=== PATIENT | male | born 1985 | race Caucasian/White ===

== ENCOUNTER 2018-12-05 21:02 | Emergency (ER) | payer OTHER, SELFPAY ==
[2018-12-05 21:02] VITALS: BP 139/81; PULSE 104; RESP 20; TEMP 36.5; O2SAT 96; BMI 32.3
--- NOTE | 2018-12-05 21:16 | CT_ITS ---
STUDY: CT BRAIN WITHOUT CONTRAST REASON FOR EXAM: Male, 33 years old. Headache. RADIATION DOSAGE (If Supplied By Facility): CTDIvol = ( 44.99 ) mGy, DLP = ( 779.24 ) mGycm TECHNIQUE: Transaxial CT imaging of the brain was performed without administration of intravenous contrast material. Individualized dose optimization techniques were used for this CT. COMPARISON: No relevant priors. FINDINGS: Normal soft tissue structures. Normal calvarium. Normal size ventricles and extra-axial spaces for the patient's age. Normal white matter tracts of the cerebral hemispheres. Normal basal ganglia and thalami. Normal brainstem. Normal cerebellum. There is no intracranial hemorrhage. There are no findings of an acute ischemic infarction. Normal visualized paranasal sinuses. CT/Brain/Head without Contrast IMPRESSION: Normal unenhanced CT scan of the brain. Electronically Signed: Franko Nguyen MD at 21:44 EDT , Service support ,
--- NOTE | 2018-12-05 21:17 | ED.VIS.HA ---
History of Present Illness Chief Complaint: Headache Informant: Patient, Significant Other Onset: Today Context: Sudden Timing: Continuous - Although alignment is working up Quality: Dull Location: Global Current Severity: Mild Maximum Severity: Moderate Worsened by: Possibly light Relieved by: Nothing Associated Symptoms: Nausea, - - Read narrative Injury: - - there is no history of trauma Narrative: Patient is a 33-year-old gentleman whose had 3 or 4 prior significant headaches. He is never had a workup for his headaches. He states he had tunnel vision, which he describes as not seen in the periphery well. This was associated with nausea and not feeling well. Patient states he had trouble comprehending what he read. He contacted . states he had problems with speech. He did not have slurred speech. His speech was not fluent. He denies neck pain or neck stiffness. He denies double vision, blurred vision or loss of vision. He denies ringing in his ears, decreased hearing or ear pain. He denies cardiac respiratory symptoms. Only GI symptom is nausea. He denies paresthesia, anesthesia or motor weakness. He denies vertiginous symptoms or problems walking. There is no family history of cardiovascular disease at young age or history of stroke at young age. He takes no supplements. He denies use of anabolic steroids. He is on Cylex for anxiety. Prior similar symptoms: No Recent Illness/Hospitalization: No - Past Medical History (1) No significant past medical history Status: Acute Past Medical History - Allergies and Home Meds Allergies/Adverse Reactions: Allergies cefaclor [From Ceclor] Allergy (Verified 07/04/15 19:24) Rash Primary Care Physician: William Jewell DO [Primary Care Provider] - Smoking Status: Never smoker Review of Systems General: Denies: Chills, Fever, Malaise, Sweats Eyes: Denies: Visual changes - bilaterally, Blurred Vision - bilaterally, Diplopia ENT: Denies: Bilateral ear pain, Rhinorrhea, Sore throat Cardiovascular: Denies: Chest pain, Palpitations, Heart racing Respiratory: Denies: Dyspnea, Cough, Dyspnea on exertion Gastrointestinal: Reports: Nausea. Denies: Abdominal pain, Vomiting, Diarrhea Genitourinary: Denies: Dysuria, Hematuria, Frequency Musculoskeletal: Denies: Myalgias, Arthralgias, Neck pain, Back pain, Swelling, Extremity Pain Skin: Denies: Rash, Wounds Neurological: Reports: Headache. Denies: Weakness, Parasthesia, Numbness Psych: Reports: Anxiety Hematologic: Denies: Easy bruising, Easy bleeding Physical Exam Vital Signs/Narrative: Vital Signs Temp Pulse Resp BP Pulse Ox 12/05/18 21:02 97.7 F L 104 H 20 H 139/81 H 96 Inital Vital Signs reviewed: Yes General: Well nourished, Well developed, - - Patient appears slightly pale. He does not appear in acute discomfort. Head: NC, AT. Negative for: Trauma, Tenderness, Temporary Artery Tenderness, Vesicular Rash, Sinus Tenderness Eyes: Perrl, EOMI, Pale conjunctiva, Scleral icterus, - - Funduscopic exam reveals normal cup-to-disc ratio. There is no papilledema. Venous pulsations noted bilaterally. ENT: Moist mucous membranes, No rhinorrhea, - - Only able to see minimal amount of the tympanic membrane secondary to cerumen.. Negative for: Nasal congestion, Sinus tenderness Neck: Supple, No Lymphadenopathy, No JVD, Nontender, No Meningismus. Negative for: Paraspinal Tenderness Cardiovascular: Regular rate, Regular rhythm, No murmurs, Normal S1, Normal S2 Respiratory: No distress, CTA bilaterally, Chest nontender Abdomen: Soft, Nontender, Nondistended, Normal bowel sounds, No masses Rectal: Deferred Back: Nontender, Normal Inspection Extremities: Nontender, No edema Skin: No rash, Pallor. Negative for: Cyanosis, Diaphoresis, Jaundice, No Trauma Neuro: Alert, Oriented x3, Cranial nerves II-XII grossly intact, Normal Strength, Normal Sensation, Normal DTR, Normal Gait - NIH Stroke Scale 1a Level of Consciousness: 0 1b LOC Questions (Score 2 if aphasic/stupor): 0 1c LOC Commands (Only score 1st attempt): 0 2 Best Gaze (If aphasic, use reflexive mvmts.): 0 3 Visual: 0 4 Facial Palsy: 0 5 Motor Arm Right (UN = amputation/fusion): 0 5 Motor Arm Left: 0 6 Motor Leg Right: 0 6 Motor Leg Left: 0 7 Limb ataxia (Only + if out of proportion): 0 8 Sensory (Aphasia/stupor=0 or 1, coma=2): 0 9 Best Language: 0 10 Dysarthria (mute, coma=2, intubated=UN): 0 11 Extinction and Inattention (only scored if +): 0 Total Score: 0 Diagnostic/Tx/Re-eval Impressions Brain CT 12/05/18 21:16 IMPRESSION: Normal unenhanced CT scan of the brain. Electronically Signed: Franko Nguyen MD at 21:44 EDT , Service support , 12/05/18 21:16 Brain/Head without Contrast [CT] Stat - Medical Decision Making With abrupt headache nausea and trouble concentrating will obtain CT of the head to evaluate for intracranial bleed. Suspect this is a migraine headache. He was treated with IV Benadryl, Reglan and Toradol. Will reassess after treatment and CT. Differential diagnosis includes migraine variant, hemorrhage intracranial, atypical stroke, possible anxiety component. Since CT is normal. His fluency and comprehension have resolved. And reports improvement with regard to his headache will discharge to home. ED Disposition - Plan for ED Patient: Disposition: Home or Assisted Living Diagnosis: Headache, migraine, intractable Instructions: ED Headache Migraine Referrals: William Jewell DO [Primary Care Provider] - 3-5 Days
[2018-12-05] MEDS: 0.9% Normal Saline 1,000 ML 999 ML IV (21:25)
[2018-12-05] MEDS: DiphenhydrAMINE 50 MG/ML Syringe 25 MG IV (21:25)
[2018-12-05] MEDS: Metoclopramide 10 MG/2 ML Vial IV (21:25)
[2018-12-05] MEDS: Ketorolac 30 MG/ML Syringe 15 MG IV (21:26)
== END 2018-12-05 22:22 | disposition home or self-care (01) ==
PROVIDERS: Emergency Provider Emergency Medicine; Family Provider Family Medicine; PCP Family Medicine
DX: G43.919 Migraine, unspecified, intractable, without status migrainosus (principal); F41.9 Anxiety disorder, unspecified; Z79.899 Other long term (current) drug therapy
CPT/HCPCS: 70450; 96361; 96374; 96375; 99283; J7030; A4216

== ENCOUNTER → 2020-10-07 13:26 | Outpatient (CLI) | payer OTHER, SELFPAY ==
--- NOTE | 2020-10-07 13:30 | STEWCON_ITS ---
Reason For Study: Lightheadedness Stress Results Protocol: Unruly Protocol WITH DEFINITY Maximum Predicted HR: 187 bpm Target HR: 159 bpm % Maximum Predicted HR: 96 % DurationHeart Rate Stage (mm:ss) (bpm) BP Comment Baseline 75 128/80No Chest Pain; 3 ML Diluted Definity Unruly Protocol Stage I 3:00 104 138/72No Chest Pain Unruly Protocol Stage II 3:00 136 136/70No Chest Pain Unruly Protocol Stage III 3:00 162 146/62No Chest Pain Unruly Protocol Stage IV 2:59 179 164/70No Chest Pain; Mild Dyspnea Recovery 99 126/70No Chest Pain Stress Duration: 11:59 mm:ss Maximum Stress HR: 179 bpm METS: 13 Baseline Echocardiogram Findings Stress Echo Wall motion Data Resting WM Intermediate WM Stress WM Interpretation Summary Exercise stress echo. 35-year-old man with a history of chest pain. Stress protocol: Resting EKG demonstrates normal sinus rhythm with a rate of 75 bpm normal intervals are noted resting blood pressure is 1 and 28 over 80 mmHg. The patient exercised according to the regular Unruyl protocol for a total duration of 12 minutes. The maximum heart rate attained was 179 bpm which was 95% of max impacted heart rate the maximum workload was 13.4 metabolic equivalents. At rest there were no ST or T wave changes noted to suggest ischemia at peak exercise upsloping ST changes were noted with no meet the criteria for ischemia. No clinical angina was noted the test was terminated due to the target heart rate being achieved. The resting blood pressure was 128/80 mmHg with a peak blood pressure 160/70 mmHg. There was good blood pressure response to exercise. Stress echocardiographic images. The resting echocardiogram demonstrated an ejection fraction of 60% with a peak ejection fraction of 75% with no wall motion abnormalities noted. There was thickening of all bradford and contraction of all bradford of the left ventricle and reduction of cavity size. No ischemic changes were noted. Conclusion: Exercise stress echo with no EKG changes noted for ischemia. Excellent functional capacity. Normal resting and stress echocardiographic images. Ordering Physician: Mike Valencia Referring Physician: Santiago Sanchez Performed By: Felipe Vega RCS
== END ==
PROVIDERS: PCP Student in an Organized Health Care Education/Training Program; Referring Provider Student in an Organized Health Care Education/Training Program; Visit Provider Student in an Organized Health Care Education/Training Program
DX: R42 Dizziness and giddiness (principal)
CPT/HCPCS: 93017; 93350; Q9957; A4216; C8928

== ENCOUNTER 2025-07-31 10:01 | Emergency (ER) | payer OTHER, SELFPAY ==
[2025-07-31 10:02] VITALS: BP 152/100; PULSE 75; RESP 16; TEMP 36.6; O2SAT 99
--- NOTE | 2025-07-31 10:16 | EX.ED.VIS.HA ---
HPI History of Present Illness Chief Complaint: Headache Informant: patient and spouse/S.O. Narrative Narrative: 40-year-old male with a history of migraines presenting to the emergency room on day for migraine symptoms. Patient states that around 4 AM on Wednesday night into Wednesday he woke with a migraine. States that normally when he gets migraines if he can take a Nurtec during the aura then his headache is controllable. He states that by Wednesday his headache was very manageable and he was able to go to congregational and do errands. However by Wednesday night the headache returned. It also improved with some Nurtec. Last night he again noted aura which includes vision and auditory. Sometimes he gets speech or extremity symptoms which she did not. He currently notes light sensitivity. He had some associated nausea. No reported fevers chills diarrhea or neck pain or rashes. His migraines are managed by primary care. He has not seen neurology. He did have a CT of the brain for migraine headache around 2018. [facility] Medical History Migraine Home Medications ?Medication ?Instructions ?Recorded ?Last Taken ?Type alprazolam 0.25 mg tablet 0.25 mg PO DAILY PRN anxiety 07/31/25 Unknown History rimegepant 75 mg disintegrating 75 mg PO DAILY PRN migraine 07/31/25 07/30/25 History tablet (Nurtec ODT) Allergy/AdvReac Type Severity Reaction Status Date / Time cefaclor (From Ceclor) Allergy Rash Verified 07/31/25 10:04 amoxicillin (From Augmentin) AdvReac Diarrhea Verified 07/31/25 10:04 clavulanic acid (From AdvReac Diarrhea Verified 07/31/25 10:04 Augmentin) Social History Smoking Status: Never smoker ROS ROS ED Constitutional Constitutional ED: Denies chills, fever(s) or weight loss Eyes Eyes: Reports other Details: Light sensitivity visual aura ; Denies blurry vision, change in vision or diplopia ENT ENT ED: Denies ear pain, rhinorrhea or sore throat Cardiovascular Cardiovascular: Denies chest pain, orthopnea, palpitations or racing heartbeat Respiratory/Chest Respiratory/Chest: Denies cough, dyspnea or orthopnea Gastrointestinal Gastrointestinal: Reports nausea; Denies abdominal pain, diarrhea or vomiting Genitourinary Genitourinary ED: Denies dysuria, hematuria or urinary frequency Musculoskeletal Musculoskeletal: Denies arthralgias or myalgias Integumentary Denies abscess or rash Neurologic Neurologic: Reports headache(s); Denies paresthesias or weakness Psychiatric Psychiatric: Denies anxiety, depression, suicidal ideation or suicidal thoughts Endocrine Endocrinology: Denies polydipsia, polyphagia or polyuria Allergic/Immunologic Allergic/Immunologic ED: Denies mouth swelling, tongue swelling or urticaria EXAM Physical Exam Narrative Exam Narrative: Lying in a darkened room. He appears in no acute distress. Const Vital Signs: 07/31/25 10:02 07/31/25 12:12 Temperature 97.9 F Temperature Source Oral Pulse Rate 75 82 Respiratory Rate 16 16 Blood Pressure 152/100 H 137/82 H Blood Pressure Mean 117 100 Pulse Ox 99 99 Oxygen Delivery Method Room Air Room Air Positive well nourished and well developed General Appearance ED: well developed HEENT Reports normocephalic, head/scalp atraumatic and moist mucous membranes Eyes PERRL and EOMs intact bilaterally Neck no lymphadenopathy, supple and no JVD Resp normal respiratory effort and clear to auscultation bilaterally Cardio regular rate, regular rhythm and no murmurs GI normal to inspection, nondistended, normoactive bowel sounds and non-tender Palpation: soft Back/Spine no CVA tenderness and normal ROM Extremity normal to inspection General Extremety ED: Negative for edema General Extremity: Negative for edema Neuro oriented x3, CN's II-XII intact bilaterally and no sensory deficits noted Jenni Coma Scale: document GCS findings Spontaneous Obeys Commands Oriented 15 Sensorium / Orientation: awake and alert Speech: speech normal Sensory Exam: No sensory level loss detected Motor Exam: strength 5/5 throughout Psych mental status grossly normal Mood & Affect: Negative for depressed or tearful Skin no rashes or lesions noted and no wounds MDM MDM MDM Narrative Medical decision making narrative: Differential diagnosis includes migraine headache cluster headache stroke LVO dissection hypertensive emergency/urgency I reviewed the patient's last ED visit. I administered Toradol Compazine and Benadryl as well as a dose of Decadron. On repeat examination he feels significantly better. He is comfortable going home and sleeping. Patient is advised to follow-up with primary care blood pressure is improved down to 137/82. His will be with him. History & Record Review Discussion w/independent historian: Patient and Significant other Additional record(s) reviewed:: Prior ED visit Discharge Plan Triage Chief Complaint: Headache ED Provider: [facility] Dx/Rx/DC Orders Clinical Impression: Migraine Instructions: ED, Migraine (Classical) Prescriptions: No Action alprazolam 0.25 mg tablet 0.25 mg PO DAILY PRN (Reason: anxiety) Nurtec ODT 75 mg tablet,disintegrating 75 mg PO DAILY PRN (Reason: migraine) Primary Care Provider: Mike Valencia Referrals: Mike Valencia DO [Primary Care Provider, Family Practice] - 3-5 Days if not improving Print Language: Danish Disposition Disposition: Home, Self Care
[2025-07-31] MEDS: 0.9% Normal Saline (1000mL) 1,000 ML 999 ML IV (11:12)
[2025-07-31] MEDS: DiphenhydrAMINE 50 MG/ML Syringe IV (11:12)
[2025-07-31] MEDS: Ketorolac 30 MG/ML Syringe IV (11:14)
[2025-07-31 12:12] VITALS: BP 137/82; PULSE 82; RESP 16; O2SAT 99
[2025-07-31 13:15] VITALS: BP 122/79; PULSE 62; RESP 14; TEMP 36.4; O2SAT 100
== END 2025-07-31 13:17 | disposition home or self-care (01) ==
PROVIDERS: Emergency Provider Emergency Medicine; PCP Student in an Organized Health Care Education/Training Program; Visit Provider Emergency Medicine
DX: G43.909 Migraine, unspecified, not intractable, without status migrainosus (principal); Z79.899 Other long term (current) drug therapy
CPT/HCPCS: 96361; 96374; 96375; 99282; A4216